=== PATIENT | female | born 1945 | race African-American/Black ===

== ENCOUNTER → 2016-11-23 17:27 | Outpatient (CLI) | payer MEDICARE, BC ==
[2015-02-07 08:30] VITALS: BMI 31.3
[~2016-11-23 17:27] MED LIST: DIOVAN HCT 320/1 TAB; TRAVATAN Z2.5 ML EACH EYE; UNITHROID112 MCG PO; VITAMIN D31000 UNIT PO
== END | disposition home or self-care (01) ==
LOC: D.MAMMO 14:45
DX: Z12.31 Encounter for screening mammogram for malignant neoplasm of breast (principal)

== ENCOUNTER 2017-06-27 05:23 | Day surgery (SDC) | payer MEDICARE, BC ==
[2017-06-26 10:38] LABS: BASOPHILS 0.4 % (0-2); HEMATOCRIT 46.5 % (36.0-48.0); HEMOGLOBIN 14.7 g/dL (12-16); IMMATURE GRANULOCYTES 0.2 % (0-5); LYMPHOCYTES 49.7 % (15-50); MCH 25.3 pg (26.0-34.0); MCHC 31.6 g/dL (31.0-37.0); MEAN PLATELET VOLUME 10.2 fL (7.4-10.4); NEUTROPHILS 41.7 % (40-80); PLATELET COUNT 211 10x3/uL (130-400); RBC 5.81 10x6/uL (4.00-5.40); RDW 14.4 % (11.5-14.5); WBC 5.4 10x3/uL (4.8-10.8)
[2017-06-26 10:51] LABS: CALCIUM 9.3 mg/dL (8.5-10.1); CARBON DIOXIDE 29.5 mmol/L (21.0-32.0); POTASSIUM - SERUM 4.5 mmol/L (3.5-5.1)
[~2017-06-27] VITALS: Ht 165.1 cm; Wt 87.1 kg
[~2017-06-27 05:23] MED LIST changes: +ALENDRONATE SOD70 MG PO; +BIOTIN5 MG PO; +CALCIUM 500 +1 EAC3 PO; -DIOVAN HCT 320/1 TAB; +DIOVAN HCT 320/1 TAB PO
[2017-06-27 07:53] VITALS: BP 140/81; Ht 165.1 cm; Wt 87.1 kg
--- NOTE | 2017-06-27 15:11 | NUR ---
1230--PT DENIES THE NEED TO VOID, WILL CONTINUE TO MONITOR. WESLEY AUGUSTE 1330--ICE WATER REFILLED, PT DENIES FURTHER NEEDS. WESLEY AUGUSTE 1415--PT VOIDS WITHOUT DIFFICULTY, IV DC'D. WESLEY AUGUSTE 1430--DISCHARGE INSTRUCTIONS GIVEN, PT VERBALIZES UNDERSTANDING. PT OFF UNIT VIA WC. WESLEY AUGUSTE
--- NOTE | 2017-07-17 17:04 | OP ---
PATIENT NAME: FRANK LEDESMA MEDICAL RECORD: [id number] :44 [facility]ATION:[facility] ADMISSION DATE: SURGEON: BOB DIETZ MD DATE OF OPERATION: 06/27/2017 PREOPERATIVE DIAGNOSES: Postmenopausal bleeding/postcoital bleeding. POSTOPERATIVE DIAGNOSES: Postmenopausal bleeding/postcoital bleeding. PROCEDURE: Hysteroscopy, D&C, and cauterization of ectocervical canal. SURGEON: Bob Dietz MD ANESTHESIA: General. INTRAVENOUS FLUIDS: Per anesthesia records. HYSTEROSCOPIC FLUID LOSS: Approximately 50 cc of 0.9 normal saline. ESTIMATED BLOOD LOSS: Minimal. SPECIMENS: Endometrial curettings. COMPLICATIONS: None apparent. FINDINGS: 1. Retroverted uterus with grossly atrophic appearing endometrial lining. 2. Grossly normal appearing cervix. PROCEDURE IN DETAIL: The patient was taken to the operating room where general anesthesia was achieved without difficulty. The patient was then prepped and draped in normal sterile fashion in the dorsal lithotomy position in the [facility]. Following prep and drape, the bladder was drained of approximately 100 cc of clear yellow urine. A Graves speculum was placed in the vagina and the cervix was identified and grasped along the anterior and posterior lips that it was flushed with the vaginal fornix. At this point, the endocervical canal was identified and gently dilated enough to allow uterine sound, which revealed a retroverted uterus and sounding to approximately 8 cm. At this point, progressive dilation was performed for about 6 mm and hysteroscope was placed into the endocervical canal. Survey of the endometrium was performed. Curettage was then performed and the Bovie cautery was then used on a low setting of 25 to cauterize the ecto-endocervical transition to help decrease postcoital bleeding. Tenaculum was then removed. Speculum was removed. The patient tolerated the procedure well, transferred to postanesthesia recovery stable without incident. TRANSINT:[id number] Voice Confirmation ID: [id number] DOCUMENT ID: [id number] OPERATIVE REPORT [id number] FRANK LEDESMA BOB DIETZ MD at 1704 CC: [id number] DICTATION DATE: 07/07/17 0308 OFFICE SERVICES MANAGER: 07/07/17 1013 [facility] 06/27/17 [facility] [address] [place] [address]
== END 2017-06-27 14:30 | disposition home or self-care (01) ==
LOC: D.OPS 05:23 → D.PAN 08:30 → D.OPS 09:00
PROVIDERS: Anesthesiology; Obstetrics & Gynecology
DX: N95.0 Postmenopausal bleeding (principal); N93.0 Postcoital and contact bleeding

== ENCOUNTER 2017-12-11 08:17 | Outpatient (CLI) | payer MEDICARE, BC ==
[2017-06-27 07:53] VITALS: BMI 32.0
== END 2017-12-11 08:18 | disposition home or self-care (01) ==
LOC: D.MAMMO 08:17
DX: Z12.31 Encounter for screening mammogram for malignant neoplasm of breast (principal)

== ENCOUNTER → 2018-01-29 12:14 | Outpatient (CLI) | payer MEDICARE, BC ==
[2017-06-27 07:53] VITALS: BMI 32.0
[2018-01-31 17:12] LABS: C-TELOPEPTIDE (SERUM) 165 pg/mL (())
== END | disposition home or self-care (01) ==
LOC: D.LAB 12:14
PROVIDERS: Dentist Oral and Maxillofacial Surgery
DX: M81.0 Age-related osteoporosis without current pathological fracture (principal)

== ENCOUNTER → 2018-09-15 09:28 | Outpatient (CLI) | payer MEDICARE, BC ==
[2017-06-27 07:53] VITALS: BMI 32.0
== END | disposition home or self-care (01) ==
LOC: D.RAD 09:28
DX: R13.10 Dysphagia, unspecified (principal)

== ENCOUNTER 2019-01-02 08:00 | Outpatient (CLI) | payer MEDICARE, BC ==
[2017-06-27 07:53] VITALS: BMI 32.0
== END 2019-01-02 23:59 | disposition home or self-care (01) ==
LOC: D.MAMMO 08:00
PROVIDERS: ATTEND Family Medicine
DX: Z12.31 Encounter for screening mammogram for malignant neoplasm of breast (principal)

== ENCOUNTER → 2019-07-20 08:23 | Outpatient (CLI) | payer MEDICARE, BC ==
[2017-06-27 07:53] VITALS: BMI 32.0
== END | disposition home or self-care (01) ==
LOC: D.MRI 08:23
PROVIDERS: ATTEND Orthopaedic Surgery
DX: M25.552 Pain in left hip (principal)

== ENCOUNTER 2019-09-25 07:25 | Day surgery (SDC) | payer MEDICARE, BC ==
[2019-09-23 15:25] LABS: BASOPHILS 0.4 % (0-2); EOSINOPHILS 2.6 % (0-7); HEMATOCRIT 43.7 % (36.0-48.0); HEMOGLOBIN 13.9 g/dL (12-16); IMMATURE GRANULOCYTES 0.4 % (0-5); LYMPHOCYTES 37.6 % (15-50); MCH 25.4 pg (26.0-34.0); MCHC 31.8 g/dL (31.0-37.0); MCV 79.7 fL (80.0-100.0); MEAN PLATELET VOLUME 9.2 fL (7.4-10.4); PLATELET COUNT 244 10x3/uL (130-400); RBC 5.48 10x6/uL (4.00-5.40); RDW 14.4 % (11.5-14.5); WBC 7.4 10x3/uL (4.8-10.8)
[2019-09-23 15:37] LABS: CALCIUM 8.9 mg/dL (8.5-10.1); CARBON DIOXIDE 30.9 mmol/L (21.0-32.0); POTASSIUM - SERUM 3.9 mmol/L (3.5-5.1)
[~2019-09-25] VITALS: Ht 292.1 cm; Wt 86.6 kg
--- NOTE | ~2019-09-25 | OP ---
PATIENT NAME: FRANK LEDESMA MEDICAL RECORD: [id number] :44 LOCATION:D.[facility] ADMISSION DATE: SURGEON: BOB DIETZ MD DATE OF OPERATION: 09/25/2019 PREOPERATIVE DIAGNOSIS: Postmenopausal bleeding. POSTOPERATIVE DIAGNOSES: 1. Cervical stenosis. 2. Grossly normal appearing atrophic endometrium. PROCEDURE: Hysteroscopy, dilation and curettage. SURGEON: Bob Dietz MD ANESTHESIA: General endotracheal. INTRAVENOUS FLUIDS: Per anesthesia record. SPECIMENS: Endometrial/endocervical curettings. ESTIMATED BLOOD LOSS: Minimal. COMPLICATIONS: None apparent. PROCEDURE IN DETAIL: The patient was taken to the operating room where general anesthesia was achieved without any difficulty. The patient was then prepped and draped in normal sterile fashion in the dorsal lithotomy position in the [facility]. Following prep and drape, the bladder was drained of approximately 200 cc of clear yellow urine, at which point a Graves speculum was placed into the vagina. The cervix was difficult to bring in to view because of his flushness with the vaginal fornices. The cervix was grasped on its anterior lip superficially with a single tooth tenaculum and then grasped posteriorly with Allis clamps to bring the endocervical canal forward. At this point, the patient was sounded and dilation was performed along the hysteroscope entry into the endocervical and then endometrial canal. Grossly atrophic appearing endometrium was noted. The patient was further dilated to approximately 7 mm, at which point a #1 curette was used to perform fractional curettage without complication. No area of the cervical ectropion was found to be bleeding, so no cauterization of that tissue was performed. This was discussed as a possibility with the patient. The Allis clamps on the posterior portion of the exocervix were removed followed by the single-tooth tenaculum. Good hemostasis was noted from the instrument sites. The patient tolerated the procedure well and was transported to postanesthesia recovery stable without incident. TRANSINT:[id number] Voice Confirmation ID: [id number] DOCUMENT ID: [id number] OPERATIVE REPORT [id number] FRANK LEDESMA BOB DIETZ MD CC: [id number] DICTATION DATE: 10/02/19 1006 DUST BRUSH ASSEMBLER: 10/02/19 1511 [facility] 09/25/[address] [facility] [address] [place] [address]
[~2019-09-25 07:25] MED LIST changes: +LOSARTAN/HCT TAB 100 PO; +PEPCID AC20 MG PO
[2019-09-25 08:14] VITALS: BP 138/80; Ht 292.1 cm; Wt 86.6 kg
--- NOTE | 2019-09-25 17:42 | NUR ---
1415-DISCHARGE CRITERIA MET. REMOVED IV WITH CATH INTACT,DISPOSED INTO SHARPS,COVERED SITE WITH GUAZE,SECURED WITH MEDIPORE TAPE. REVIEWED POST OPERATIVE INSTRUCTIONS AND FOLLOW UP APPOINTMENT.
--- NOTE | 2019-09-25 17:45 | NUR ---
1420-PT DRESSED. ESCORTED OUT VOA W/C WITH SPOUSE AWAITING TO DRIVE HOME
== END 2019-09-25 14:20 | disposition home or self-care (01) ==
LOC: D.OPS 07:25 → D.PAN 10:00 → D.OPS 10:00
PROVIDERS: Anesthesiology; ATTEND Obstetrics & Gynecology
DX: N88.2 Stricture and stenosis of cervix uteri (principal); I10 Essential (primary) hypertension; E03.9 Hypothyroidism, unspecified; E11.9 Type 2 diabetes mellitus without complications; K21.9 Gastro-esophageal reflux disease without esophagitis

== ENCOUNTER → 2020-04-29 09:02 | Outpatient (CLI) | payer MEDICARE, BC ==
[2019-09-25 08:14] VITALS: BMI 10.1
[~2020-04-29 09:02] MED LIST changes: +CYCLOBENZAPRINE10 MG PO
== END | disposition home or self-care (01) ==
LOC: D.US 09:02
PROVIDERS: ATTEND Otolaryngology
DX: E04.1 Nontoxic single thyroid nodule (principal)

== ENCOUNTER 2020-05-02 08:22 | Inpatient (IN) | payer MEDICARE, BC ==
[~2020-05-02] VITALS: Ht 165.1 cm; Wt 88.6 kg
[~2020-05-02 08:22] MED LIST changes: -CYCLOBENZAPRINE10 MG PO
[2020-05-02] MEDS ORDERED: CYCLOBENZAPRINE10 MG PO (08:35)
--- NOTE | 2020-05-02 08:44 | NUR ---
PT TO RADIOLOGY VIA WHEELCHAIR AT THIS TIME WITH PHOTOGRAMMETRIC COMPILATION SPECIALIST.
--- NOTE | 2020-05-02 09:25 | NUR ---
WOUND CARE PROVIDED TO PTS KNEES BILATERALLY SHE HAS ABRAISON'S TO BOTH KNEES FROM HER FALL. BOTH ABRAISONS CLEANED WITH WOUND POSITION DESCRIPTION MANAGER AND THEN A NON-ADHERENT DRESSING AND TAPE APPLIED TO THE PTS RIGHT KNEE AND A BANDAIDE APPLIED TO THE PTS RIGHT KNEE AFTER CLEANING IT WITH WOUND POSITION DESCRIPTION MANAGER. PT TOLERATED WELL.
[2020-05-02 10:05] LABS: BASOPHILS 0.1 % (0-2); EOSINOPHILS 0.9 % (0-7); HEMATOCRIT 45.7 % (36.0-48.0); HEMOGLOBIN 14.3 g/dL (12-16); IMMATURE GRANULOCYTES 0.9 % (0-5); MCH 24.9 pg (26.0-34.0); MCHC 31.3 g/dL (31.0-37.0); MCV 79.5 fL (80.0-100.0); MEAN PLATELET VOLUME 9.8 fL (7.4-10.4); MONOCYTES 4.6 % (2-11); NEUTROPHILS 68.5 % (40-80); PLATELET COUNT 208 10x3/uL (130-400); RBC 5.75 10x6/uL (4.00-5.40); RDW 14.2 % (11.5-14.5); WBC 7.8 10x3/uL (4.8-10.8)
[2020-05-02 10:36] VITALS: BP 125/75
[2020-05-02 11:33] VITALS: BP 112/72
[2020-05-02 11:40] VITALS: BP 115/71
--- NOTE | 2020-05-02 11:47 | NUR ---
RECEIVED PT FROM ED. NO ACUTE DISTRESS NOTED.C/O OF PAIN 5/10 IN LOWER BACK AREA. REPOSITIONED WITH PILLOWS. ONE UNDER LUMBAR AREA AND ON UNDER RIGHT ARM TO SUPPORT RIGHT SHOULDER. REPORTS REPOSITIONING HELPS RELIEVE SOME PAIN. VS STABLE. HUISBAND AT BEDSIDE. 20G PIV IN RIGHT UPPER ARM, NS AT 125Ml/HR. BED IN LOWEST POSITION, LOCKED, SIDE RAILS UP X2. CALL LIGHT WITHIN REACH. NEEDS ANTICIPATED AND MET. WILL CONTINUE TO MONITOR
[2020-05-02 12:08] LABS: ANION GAP 14.5 mmol/L (8-16); CALCIUM 9.4 mg/dL (8.5-10.1); CREATININE - SERUM 1.1 mg/dL (0.6-1.3); POTASSIUM - SERUM 3.5 mmol/L (3.5-5.1)
[2020-05-02 12:13] LABS: ALBUMIN 3.4 g/dL (3.4-5.0); BILIRUBIN - TOTAL 0.55 mg/dL (0.2-1.3); PROTEIN - SERUM 7.4 g/dL (6.4-8.2)
[2020-05-02 12:18] VITALS: Ht 165.1 cm; Wt 88.6 kg
[2020-05-02 12:40] VITALS: BP 122/74
[2020-05-02 16:00] VITALS: BP 115/71
[2020-05-02 20:00] VITALS: BP 136/72
[2020-05-03] VITALS: BP 105/75
[2020-05-03 04:00] VITALS: BP 142/76
[2020-05-03 07:03] LABS: BASOPHILS 0.1 % (0-2); EOSINOPHILS 0.4 % (0-7); HEMATOCRIT 39.7 % (36.0-48.0); HEMOGLOBIN 12.6 g/dL (12-16); IMMATURE GRANULOCYTES 0.2 % (0-5); LYMPHOCYTES 29.7 % (15-50); MCH 25.2 pg (26.0-34.0); MCHC 31.7 g/dL (31.0-37.0); MCV 79.4 fL (80.0-100.0); MEAN PLATELET VOLUME 9.5 fL (7.4-10.4); NEUTROPHILS 62.6 % (40-80); PLATELET COUNT 169 10x3/uL (130-400); RDW 14.1 % (11.5-14.5); WBC 8.2 10x3/uL (4.8-10.8)
[2020-05-03 07:16] LABS: ANION GAP 11.2 mmol/L (8-16); BILIRUBIN - TOTAL 0.59 mg/dL (0.2-1.3); CALCIUM 8.3 mg/dL (8.5-10.1); CARBON DIOXIDE 24.5 mmol/L (21.0-32.0); CREATININE - SERUM 1.1 mg/dL (0.6-1.3); POTASSIUM - SERUM 3.7 mmol/L (3.5-5.1); PROTEIN - SERUM 6.2 g/dL (6.4-8.2)
[2020-05-03 08:00] VITALS: BP 152/71
[2020-05-03 17:38] VITALS: BP 144/90
--- NOTE | 2020-05-03 17:42 | NUR ---
RECEIVED FROM OR. NO ACUTE DISTRESS NOTED. REPORTED FEELING NAUSEATED. ZOFRAN PRN WAS GIVEN. AND DAUGHTER AT BEDSIDE. AWAKE AND ORIENTED X4. RIGHT ARM IN SLING. DAVOL DRAIN IN RIGHT SHOULDER. NC/3L. BED IN LOWEST POSITION, LOCKED, SIDE RAILS UP X2. CALL LIGHT WITHIN REACH. NEEDS ANTICIPATED AND MET. WILL CONTINUE TO MONITOR
[2020-05-03 17:48] VITALS: BP 145/90
[2020-05-03 19:53] VITALS: BP 148/76
[2020-05-04 00:10] LABS: BILIRUBIN NEGATIVE (NEGATIVE); KETONE NEGATIVE (NEGATIVE); NITRITE NEGATIVE (NEGATIVE); UROBILINOGEN NORMAL mg/dL (< 2)
--- NOTE | 2020-05-04 02:48 | NUR ---
I have reviewed this patient and I concur with the Shift Assessment completed by the Licensed Practical Nurse today this shift.
[2020-05-04 04:00] VITALS: BP 131/71
[2020-05-04 05:33] LABS: BASOPHILS 0.2 % (0-2); EOSINOPHILS 0 % (0-7); HEMATOCRIT 36.7 % (36.0-48.0); HEMOGLOBIN 11.5 g/dL (12-16); IMMATURE GRANULOCYTES 0.2 % (0-5); LYMPHOCYTES 12.2 % (15-50); MCH 24.7 pg (26.0-34.0); MCHC 31.3 g/dL (31.0-37.0); MCV 78.9 fL (80.0-100.0); MEAN PLATELET VOLUME 9.4 fL (7.4-10.4); MONOCYTES 6.4 % (2-11); PLATELET COUNT 164 10x3/uL (130-400); RBC 4.65 10x6/uL (4.00-5.40); RDW 13.9 % (11.5-14.5)
[2020-05-04 06:13] LABS: ALBUMIN 2.7 g/dL (3.4-5.0); ANION GAP 10.6 mmol/L (8-16); BILIRUBIN - TOTAL 0.42 mg/dL (0.2-1.3); CARBON DIOXIDE 24.4 mmol/L (21.0-32.0); CREATININE - SERUM 1.1 mg/dL (0.6-1.3); PROTEIN - SERUM 6.3 g/dL (6.4-8.2); WBC 10.3 10x3/uL (4.8-10.8)
--- NOTE | 2020-05-04 07:40 | OP ---
PATIENT NAME: FRANK TUTTLE MEDICAL RECORD: [id number] :44 LOCATION:[id number] ADMISSION DATE:05/02/20 SURGEON: BOB HDZ DO DATE OF OPERATION: 05/03/2020 PROCEDURE PERFORMED: Right reverse total shoulder arthroplasty. PREOPERATIVE DIAGNOSIS: Right proximal humerus fracture. POSTOPERATIVE DIAGNOSIS: Right proximal humerus fracture. INDICATIONS: Ms. Ttutle is a 74-year-old female who fractured her right proximal humerus a day ago when she was taking out the trash and fell onto the right shoulder. She had experienced severe swelling and pain and was brought into the ER. I think she had a fractured shoulder. I informed her of the options. After CT was done, seen to be very comminuted and very likelihood to collapse. She had 4 to 5 different pieces. She opted to go with the operative route of the reverse total shoulder versus nonoperative and let it heal. I told her this should be a risk for infection, bleeding, damage to nerves and vessels in the area, continued pain, dislocation, need for further surgery, failure of implants and even and she signed the consent. SURGEON: Bob Hdz DO PROCEDURE IN DETAIL: The patient received a block by anesthesia in preoperative area, was given 900 mg of clindamycin, taken to the operative suite, laid in supine position, given general anesthetic and intubated. She was positioned in the beach chair position and the right shoulder was prepped and draped in sterile fashion. A timeout was performed and everyone was in agreement with correct side, site, patient and procedure. She was given a gram of TXA. I then made an incision over the deltopectoral interval and made careful dissection down to the cephalic vein and moved it laterally, opened up the deltopectoral interval and exposed the fracture, tagged the long head of the bicep tendon and subscapularis tendon even though it was attached to a large chunk of fracture. I peeled it off the fracture site and removed the head also exposing the glenoid, removed the labrum and put a centering pin in and then reamed and put in the baseplate. I then put in a central screw, it was 25 in length and three peripheral screws, one 25 in the anterior superior and one in the posterior superior and posterior inferior of 20 mm each. I then impacted on the lateralize head in the glenosphere. I then exposed the humerus and reamed first and then broached to 11 and 11 fit well. I then reduced the 11 and ended up taking out the greater tuberosity after I had placed the implant and then we removed the implant and put in a +3 retentive head. It fit very well and she had good range of motion. We then irrigated out thoroughly and put in 10% povidone iodine 500 mL of saline solution. I then irrigated that out 3 minutes later and irrigated out with a liter of normal saline. I then put in the Shaina and vancomycin and tobramycin powder and then drain in leaving it posteriorly. Alexys Shoemaker, certified athletic trainer then closed the interval with #1 Vicryl in a simple fashion and then 2-0 Vicryl on the skin, 4-0 Monocryl in the skin and Prineo glue on the skin. Dressed with Telfa and Tegaderm. The drain was held in place with two Tegaderms. She was awakened and taken to recovery in stable condition. Blood loss was approximately 200 mL. COMPLICATIONS: None. OPERATIVE REPORT [id number] FRANK TUTTLE TRANSINT:[id number] Voice Confirmation ID: [id number] DOCUMENT ID: [id number] BOB HDZ DO at 0740 CC: [id number] DICTATION DATE: 05/03/201617 ADMISSION LIAISON: 05/04/20 [address] [facility] [address] [id number]
--- NOTE | 2020-05-04 09:45 | NUR ---
PT RESTING QUIETLY IN BED. RESP EVEN AND UNLABORED. SLING AND DRESSING TO RIGHT UPPER EXTREMITY. PT REPORTS PAIN 5/10 AT THIS TIME. IV TO LEFT FOREARM WITH 1/2 NS @ 50ML/HR INFUSING VIA PUMP. SITE WITHOUT REDNESS OR EDEMA. DENIES FURTHER NEEDS AT THIS TIME. CL WITHIN REACH. ENCOURAGED TO CALL WITH NEEDS. CONTINUE POC
[2020-05-04 09:47] VITALS: BP 133/68
[2020-05-04 11:57] VITALS: BP 126/62
[2020-05-04] MEDS ORDERED: HYDROCODON-ACE1 EA10 PO (14:48)
[2020-05-04] MEDS ORDERED: ZOFRAN ODT4 MG/UDTAB PO (14:48)
== END 2020-05-04 16:29 | disposition home or self-care (01) | DRG 483 ==
LOC: D.ER 08:22 → D.MS 09:42
PROVIDERS: Family Medicine; Orthopaedic Surgery; ADMIT Family Medicine; ATTEND Family Medicine
PROC: 0RRJ00Z Replacement of Right Shoulder Joint with Reverse Ball and Socket Synthetic Substitute, Open Approach (ICD-10-PCS; principal; 2020-05-03 11:30)
DX: S42.201A Unspecified fracture of upper end of right humerus, initial encounter for closed fracture (principal); W18.30XA Fall on same level, unspecified, initial encounter; E11.65 Type 2 diabetes mellitus with hyperglycemia; I10 Essential (primary) hypertension; K21.9 Gastro-esophageal reflux disease without esophagitis; E66.9 Obesity, unspecified; M81.0 Age-related osteoporosis without current pathological fracture; M19.90 Unspecified osteoarthritis, unspecified site; Z68.32 Body mass index [BMI] 32.0-32.9, adult

== ENCOUNTER → 2020-05-10 15:55 | Outpatient (CLI) | payer MEDICARE, BC ==
[2020-05-02 12:18] VITALS: BMI 32.5
[~2020-05-10 15:55] MED LIST changes: +CYCLOBENZAPRINE10 MG PO; +HYDROCODON-ACE1 EA10 PO; +ZOFRAN ODT4 MG/UDTAB PO
== END | disposition home or self-care (01) ==
LOC: D.US 15:55
PROVIDERS: ATTEND Nurse Practitioner Family
DX: R22.31 Localized swelling, mass and lump, right upper limb (principal)

== ENCOUNTER → 2020-09-27 08:05 | Outpatient (CLI) | payer MEDICARE, BC ==
[~2020-09-27 08:05] MED LIST changes: +ELIQUIS5 MG PO
== END | disposition home or self-care (01) ==
LOC: D.US 08:05
PROVIDERS: ATTEND Family Medicine
DX: E04.1 Nontoxic single thyroid nodule (principal)

== ENCOUNTER → 2020-10-14 08:05 | Outpatient (CLI) | payer MEDICARE, BC | END | disposition home or self-care (01) | LOC: D.RAD 08:05 | PROVIDERS: ATTEND Otolaryngology | DX: R13.10 Dysphagia, unspecified (principal); E04.2 Nontoxic multinodular goiter ==

== ENCOUNTER 2020-11-23 16:00 | Outpatient (CLI) | payer MEDICARE, BC | END 2020-11-23 23:59 | disposition home or self-care (01) | LOC: D.MAMMO 16:00 | PROVIDERS: ATTEND Family Medicine | DX: Z12.31 Encounter for screening mammogram for malignant neoplasm of breast (principal) ==